=== PATIENT | female | born 1930 | race Caucasian/White ===

== ENCOUNTER 2016-06-11 14:35 | Emergency (ER) | payer MEDICARE ==
[~2016-06-11] VITALS: Ht 157.5 cm; Wt 90.0 kg
[2016-06-11 14:38] VITALS: BP 215/115; PULSE 87; RESP 15; TEMP 98.1; O2SAT 98
--- NOTE | 2016-06-11 15:10 | PD ---
HPI Chief Complaint: Hypertension Time Seen by Provider: 14:46 Travel History International Travel<30 days: No Contact w/Intl Traveler<30days: No Traveled to known affect area: No History of Present Illness HPI This is an 85-year-old female who has a history of hypertension who presents to the emergency department with high blood pressure. She recently was increased 50 mg of losartan twice a day. She says she intermittently gets dizzy when she takes this so she's been taking her blood pressure on the hour almost every hour and always before she takes her second blood pressure medication. She says today she checked her blood pressure and it was in the 200s for several hours, constant, moderate severity, starting last evening. She denies any headache, chest pain, shortness of breath or weakness or numbness. She is here visiting her daughter and goes home to [place] in August. [facility] Past Medical History Narrative Medical htn dm Diabetes: Yes ?: Not Past Surgical History Hysterectomy: Yes Social History Tobacco Use: No Review of Systems Except as stated in HPI: all other systems reviewed are Neg Physical Exam Narrative GENERAL:Well appearing, no acute distress SKIN: Warm and dry. HEAD: Atraumatic. Normocephalic. EYES: Pupils equal and round. No injection or drainage. ENT: Moist mucous membranes NECK: Trachea midline. CARDIOVASCULAR: Regular rate and rhythm. No murmur appreciated. RESPIRATORY: Clear to auscultation. Breath sounds equal bilaterally. GASTROINTESTINAL: Abdomen soft, non-tender, nondistended. MUSCULOSKELETAL: No obvious deformities. NEUROLOGICAL: Awake and alert. No obvious cranial nerve deficits. Moving all extremities. PSYCHIATRIC: Appropriate mood and affect; insight and judgment normal. Data Data Last Documented VS Vital Signs Date Time Temp Pulse Resp B/P Pulse Ox O2 Delivery O2 Flow Rate FiO2 06/11/16 14:38 98.1 87 15 215/115 98 Orders Electrocardiogram (06/11/16 ) MDM Medical Decision Making Medical Screen Exam Complete: Yes Emergency Medical Condition: Yes Interpretation(s) Afebrile, no tachycardia, hypertensive Differential Diagnosis Hypertension, hypertensive urgency, hypertensive emergency Narrative Course This is an 85-year-old female who presents to the emergency department with high blood pressure. She says she's been taking her blood pressure throughout the night and it's been in the 200s. She does have white coat syndrome and it always runs high at the doctor's office. She brought in a blood pressure log which demonstrates her hourly blood pressures for the past 48 hours. They've ranged anywhere from 120-220. I'm very hesitant to treat the patient's blood pressure in the emergency. I think an accurate reading is compounded by her anxiety. She has no chest pain or neurologic symptoms. I asked her to take her blood pressure once a day at the same time every day and record it. Her and her daughter feel very reassured. Pt. will be discharged home. Diagnosis Primary Impression: Hypertension Qualified Code: I10 - Essential hypertension Patient Instructions: General Instructions Additional Instructions: If you develop severe chest pain, shortness of breath, sweating, lightheadedness , dizziness or difficulty breathing return to the emergency department immediately. Followup with your primary care physician in 2-3 days if your symptoms are not resolved. Med/Other Pt SpecificInfo: Prescription(s) given Disposition: 01 DISCHARGE HOME Condition: Stable Erum Leonard MD Jun 11, 2016 15:10
[2016-06-11] MEDS ORDERED: METF500T PO (15:27)
[2016-06-11] MEDS ORDERED: HYDR12.57 PO (15:27)
[2016-06-11] MEDS ORDERED: LOSA50TA2 PO (15:27)
== END 2016-06-11 15:45 | disposition home or self-care (01) ==
LOC: NEPC 14:35
DX: I10 Essential (primary) hypertension (principal); E11.9 Type 2 diabetes mellitus without complications
CPT/HCPCS: 99283